=== PATIENT | female | born 1975 | race Two or more races ===

== ENCOUNTER 2020-05-17 08:29 | Outpatient (REF) | payer OTHER, SELFPAY ==
--- NOTE | 2020-05-17 | MM_ITS ---
EXAMINATION: MM SCREENING DIGITAL BREAST TOMOSYNTHESIS, BILATERAL CLINICAL INFORMATION: Screening. Asymptomatic. The lifetime risk of breast cancer based on the Tyrer-Cuzick Model is 16%. COMPARISON: Mammography: September 30, 2018 and studies dating back to February 23, 2014 TECHNIQUE: Digital breast tomosynthesis is performed in both the craniocaudal and mediolateral oblique views along with computer-aided detection (CAD). Synthesized 2D images are generated from the tomosynthesis. FINDINGS: The breasts are extremely dense, which lowers the sensitivity of mammography (ACR BI-RADS breast composition Category d). There are no significant masses, abnormal calcifications, or other abnormalities. MM/MM tomosynthesis screening BI IMPRESSION: There are no significant changes from prior study. ASSESSMENT: BI-RADS 1: Negative RECOMMENDATION: Routine annual mammography screening. This patient's information was entered into a reminder system with a target due date for their next mammogram.
== END 2020-05-17 08:30 | disposition home or self-care (01) ==
LOC: HO.MAMMO 08:29
PROVIDERS: PCP Internal Medicine; Visit Provider Internal Medicine
DX: Z12.31 Encounter for screening mammogram for malignant neoplasm of breast (principal)
CPT/HCPCS: 77063; 77067

== ENCOUNTER 2021-05-27 11:25 | Outpatient (REF) | payer OTHER, SELFPAY ==
--- NOTE | ~2021-05-27 | MM_ITS ---
EXAMINATION: MM SCREENING DIGITAL BREAST TOMOSYNTHESIS, BILATERAL CLINICAL INFORMATION: Screening. Asymptomatic. The lifetime risk of breast cancer based on the Tyrer-Cuzick Model is 17%. COMPARISON: Mammography: 05/17/2020, 09/20/2018, 09/04/2017 TECHNIQUE: Digital breast tomosynthesis is performed in both the craniocaudal and mediolateral oblique views along with computer-aided detection (CAD). Synthesized 2D images are generated from the tomosynthesis. FINDINGS: The breasts are heterogeneously dense, which may obscure small masses (ACR BI-RADS breast composition Category c). There are no significant masses, abnormal calcifications, or other abnormalities. Parenchymal pattern is similar to prior study. No developing density. The axilla and skin contours are unremarkable. MM/MM tomosynthesis screening BI IMPRESSION: No mammographic evidence of malignancy. ASSESSMENT: BI-RADS 1: Negative RECOMMENDATION: Routine annual mammography screening. This patient's information was entered into a reminder system with a target due date for their next mammogram.
== END 2021-05-27 11:26 | disposition home or self-care (01) ==
LOC: HO.MAMMO 11:25
PROVIDERS: Visit Provider Internal Medicine
DX: Z12.31 Encounter for screening mammogram for malignant neoplasm of breast (principal)
CPT/HCPCS: 77063; 77067

== ENCOUNTER 2022-05-30 08:00 | Outpatient (REF) | payer OTHER, SELFPAY ==
--- NOTE | ~2022-05-30 | MM_ITS ---
EXAMINATION: MM SCREENING DIGITAL BREAST TOMOSYNTHESIS, BILATERAL CLINICAL INFORMATION: Screening. Asymptomatic. The lifetime risk of breast cancer based on the Tyrer-Cuzick Model is 16%. COMPARISON: Mammography: 05/27/2021, 05/17/2020, 09/20/2018 TECHNIQUE: Digital breast tomosynthesis is performed in both the craniocaudal and mediolateral oblique views along with computer-aided detection (CAD). Synthesized 2D images are generated from the tomosynthesis. FINDINGS: The breasts are heterogeneously dense, which may obscure small masses (ACR BI-RADS breast composition Category c). There are no significant masses, abnormal calcifications, or other abnormalities. Parenchymal pattern is similar to prior studies. There is no developing density or architectural abnormality. The axilla and skin contours are unremarkable. No significant changes. MM/MM tomosynthesis screening BI IMPRESSION: No mammographic evidence of malignancy. ASSESSMENT: BI-RADS 1: Negative RECOMMENDATION: Routine annual mammography screening. This patient's information was entered into a reminder system with a target due date for their next mammogram.
== END 2022-05-30 08:01 | disposition home or self-care (01) ==
LOC: HO.MAMMO 08:00
PROVIDERS: PCP Internal Medicine; Visit Provider Internal Medicine
DX: Z12.31 Encounter for screening mammogram for malignant neoplasm of breast (principal)
CPT/HCPCS: 77063; 77067

== ENCOUNTER 2022-11-24 14:59 | Emergency (ER) | payer OTHER, SELFPAY ==
--- NOTE | ~2022-11-24 | CT_ITS ---
EXAMINATION: CT HEAD WITHOUT CONTRAST CT CERVICAL SPINE WITHOUT CONTRAST CLINICAL INFORMATION: Fall. COMPARISON: MRI of the brain 02/24/2019 TECHNIQUE: Imaging was performed from the skull base to vertex without intravenous administration of contrast. In addition, helical noncontrast CT imaging was acquired through the cervical spine and source images were reviewed along with axial reconstructions and sagittal and coronal MPRs. [This CT examination was performed using dose optimization techniques as appropriate, variously including the following: *Automated exposure control *Adjustment of mA and/or kV according to patient size (this includes techniques or standardized protocols for targeted exams where dose is matched to indication/reason for exam; i.e. extremities or head) *Use of iterative reconstruction technique] DLP: 857 mGy-cm FINDINGS: HEAD: No intracranial mass, hemorrhage, or midline shift is visualized. The ventricles and sulci are proportional. No extra-axial collections are identified. The paranasal sinuses and mastoid air cells are well aerated. CERVICAL SPINE: There is no evidence of acute cervical spine fracture. Vertebral bodies remain normal in height. Cervical vertebrae have normal alignment. There is multilevel degenerative spondylosis of the cervical spine with disc height narrowing and endplate spurs and facet joint arthrosis No pre- or paravertebral soft tissue abnormality is identified. Limited assessment of the lung apices is unremarkable. CT/CT cervical spine wo IV con IMPRESSION: 1. No acute intracranial pathology. 2. No CT evidence of acute cervical spine fracture or traumatic subluxation
--- NOTE | ~2022-11-24 | XR_ITS ---
EXAMINATION: XR CHEST CLINICAL INFORMATION: Trauma COMPARISON: None available. TECHNIQUE: Frontal view of the chest was obtained. FINDINGS: No significant abnormality is noted involving the heart, lungs, mediastinum, bony thorax or soft tissues. Degenerative changes of the spine. XR/XR chest 1V IMPRESSION: Unremarkable examination.
--- NOTE | ~2022-11-24 | CT_ITS ---
EXAMINATION: CT HEAD WITHOUT CONTRAST CT CERVICAL SPINE WITHOUT CONTRAST CLINICAL INFORMATION: Fall. COMPARISON: MRI of the brain 02/24/2019 TECHNIQUE: Imaging was performed from the skull base to vertex without intravenous administration of contrast. In addition, helical noncontrast CT imaging was acquired through the cervical spine and source images were reviewed along with axial reconstructions and sagittal and coronal MPRs. [This CT examination was performed using dose optimization techniques as appropriate, variously including the following: *Automated exposure control *Adjustment of mA and/or kV according to patient size (this includes techniques or standardized protocols for targeted exams where dose is matched to indication/reason for exam; i.e. extremities or head) *Use of iterative reconstruction technique] DLP: 857 mGy-cm FINDINGS: HEAD: No intracranial mass, hemorrhage, or midline shift is visualized. The ventricles and sulci are proportional. No extra-axial collections are identified. The paranasal sinuses and mastoid air cells are well aerated. CERVICAL SPINE: There is no evidence of acute cervical spine fracture. Vertebral bodies remain normal in height. Cervical vertebrae have normal alignment. There is multilevel degenerative spondylosis of the cervical spine with disc height narrowing and endplate spurs and facet joint arthrosis No pre- or paravertebral soft tissue abnormality is identified. Limited assessment of the lung apices is unremarkable. CT/CT head/brain wo IV con IMPRESSION: 1. No acute intracranial pathology. 2. No CT evidence of acute cervical spine fracture or traumatic subluxation
[2022-11-24 15:07] VITALS: BP 128/84; PULSE 113; O2SAT 100
[2022-11-24 15:08] VITALS: BP 132/90; PULSE 111; RESP 18; TEMP 36.6; O2SAT 99; BMI 22.0
--- NOTE | 2022-11-24 15:31 | ED.GENADULT ---
HPI - General Adult General Chief complaint: Fall Stated complaint: fall with head strike Time Seen by Provider: 11/24/22 15:17 Source: patient Mode of arrival: ambulatory Limitations: no limitations History of Present Illness HPI narrative: 47-year-old female presenting from adult day facility for reports of fall out of wheelchair, patient was trying to do a wheely on her wheelchair, fell, hit her head and reports she thinks she lost consciousness, patient is not on blood thinners, she is not sure how long she was on the ground for. Patient tells me she has to come in here per policy of the adult day program. Patient endoreses diffuse headache w/o vision changes or dizziness. She denies vision changes, nausea, vomiting, abdominal pain, chest pain, shortness of breath, preceding symptoms to fall, dizziness. GCS 15 Related Data Previous Rx's Medication Instructions Recorded oxybutynin chloride 5 mg 5 mg PO DAILY #30 tabs 04/23/22 tablet,extended release 24 hr Allergies Allergy/AdvReac Type Severity Reaction Status Date / Time No Known Allergies Allergy Verified 02/10/22 07:47 Review of Systems Review of Systems: Constitutional : No Weight loss, No Fever, No Chills, No Fatigue, No Malaise ENT/Mouth : No sore throat, No Rhinorrhea Eyes: No Eye Pain, No Swelling, No Redness Cardiovascular : No Chest Pain, No SOB, No Dyspnea on Exertion, No Orthopnea, No Edema, No Palpitations Respiratory : No Cough, No Sputum, No Wheezing Gastrointestinal : No Nausea, No Vomiting, No Diarrhea, No Constipation, No abdominal Pain, No Hematochezia, No Melena Genitourinary : No Dysuria, No Urinary Frequency, No Hematuria, Musculoskeletal : No joint pain, No Myalgias, No Joint Swelling Skin : No Skin Lesions, No rash Neuro : No Weakness, No Numbness, No Dizziness, + Headache Psych : No Anxiety/Panic, No Depression All other systems reviewed and are negative Yes all other systems are reviewed and are negative FORMERLY [facility], [facility] Past Medical History Attestation statement: The following information was validated with the patient. Source: old records reviewed and nursing notes reviewed Medical History Cerebral palsy Family history of diabetes mellitus Underweight Urge urinary incontinence Surgical History Deficient knowledge of leg surgery Fibroadenoma Family History Family History Mother Diabetes mellitus Father Diabetes mellitus Social History Social History Housing: House Alcohol intake: never Patient Tobacco Use Status: Never used Tobacco Tobacco use type: Cigarette e-Cigarette/Vaping Use: Never Used Second Hand Smoke Exposure: No Advance Directives: No Advance Directives Information Provided: No service: No Current occupational status: disabled Cognitive needs: Yes Hearing needs: No Vision needs: No Physical Exam ED Vital Signs: Vital Signs - 24 hr 11/24/22 15:08 Temperature 98 F Pulse Rate 111 H Respiratory Rate 18 Blood Pressure 132/90 H Pulse Oximetry 99 Oxygen Delivery Method Room Air BMI result Body Mass Index 22.0 VSS Appearance: Alert.? Oriented X3.? No acute distress.? Head: Normocephalic, atraumatic, no step-offs or deformities Eyes: Pupils equal, round and reactive to light.?EOMI Neck: Normal inspection.? Neck supple.? CVS: Normal heart rate and rhythm.? Pulses normal.? Respiratory: No respiratory distress.? Breath sounds normal.? Abdomen: Soft and nontender.? Skin: Skin warm and dry.? Normal skin color.? Normal skin turgor.? Extremities: No lower extremity edema.? No calf ttp. 5/5 strength to bilateral upper and lower extremities Back: No midline tenderness, no C-spine tenderness, full range of motion, no CVA tenderness bilaterally Neuro: Oriented X 3.? No motor deficit.? No sensory deficit. CN 2-12 intact . Normal [id number], negative Romberg and pronator drift. Normal hand certified alcohol drug counselor bilaterally. Course Reevaluation(s) Reevaluation #1: CBC with slight leukocytosis likely reactive from fall, chemistry no acute electrolyte abnormalities requiring intervention.Chest xray unremarkable. CT head/cervical spine no acute findings. Likely concussion. Educated on post concussive syndrome. Educated patient on diagnosis and treatment plan, answered all question, patient verbalizes understanding. At this time patient will be discharged home, advised to return with new or worsening symptoms. Educated on worrisome signs and symptoms and when to return. At this time I feel comfortable discharge home. Time: 16:58 Medications Administered Discontinued Medications Generic Name Dose Route Start Last Admin Trade Name Andrez PRN Reason Stop Dose Admin Acetaminophen 650 mg 11/24/22 16:12 11/24/22 16:34 Acetaminophen 325 Mg Tablet PO 11/24/22 16:13 650 mg ONCE ONE Administration Medical Decision Making Medical Decision Making [facility] Narrative: 47-year-old female presents with you fall with loss of consciousness at an adult health facility. Not on blood thinners. no medical complaints. Had to come in for evaluation per protocol of [facility] physical examination benign. Likely concussion with loss of consciousness. Unlikely intracranial hemorrhage, stroke, posterior stroke, skull fracture dislocation. No signs of cervical spine fracture dislocation unlikely facial fractures. No preceding symptoms to fall I do not suspect ACS, PE , dissection. will rule out rhabdo Plan labs, imaging Differential Diagnosis Differential Diagnoses: The differential diagnosis associated with the presentation includes Likely concussion with loss of consciousness. Unlikely intracranial hemorrhage, stroke, posterior stroke, skull fracture dislocation. No signs of cervical spine fracture dislocation unlikely facial fractures. No preceding symptoms to fall I do not suspect ACS, PE , dissection. will rule out rhabdo Admission/Observation Consideration of admission/observation: Escalation of care including admission/observation considered Lab Data [facility] Lab Attestation statement: I reviewed the patient's lab results. 11/24/22 16:13 11/24/22 16:13 Labs: Lab Results 11/24/22 11/24/22 Range/Units 16:13 16:13 WBC 13.3 H (4.8-10.8) X10*3/uL RBC 4.84 (4.20-5.50) X10*6/uL Hgb 11.0 L (12.0-16.0) g/dl Hct 36.5 L (37.0-47.0) % MCV 75.4 L (80.0-98.0) fL MCH 22.7 L (27.0-33.0) pg MCHC 30.1 L (31.0-35.0) g/dl RDW 15.1 (11.0-16.0) % Plt Count 381 (160-400) X10*3/uL MPV 9.5 (9.4-12.3) fL Immature Gran % (Auto) 0.3 (0.0-0.4) % Neut % (Auto) 80.2 H (45-73) % Lymph % (Auto) 12.2 L (20-40) % Osborne % (Auto) 6.4 (2-11) % Eos % (Auto) 0.2 (0-4) % Baso % (Auto) 0.7 (0-2) % Lymph # (Auto) 1.6 (1.2-4.9) X10*3/uL Osborne # (Auto) 0.9 (0.1-1.2) X10*3/uL Eos # (Auto) 0.0 (0.0-0.4) X10*3/uL Baso # (Auto) 0.1 (0.0-0.2) X10*3/uL Abs Immat Gran (auto) 0.04 H (0.00-0.03) X10*3/uL Absolute Neuts (auto) 10.7 H (2.0-8.3) x10*3/uL Absolute Nucleated RBC 0.000 (0.0-0.012) X10*3/uL Nucleated RBC % (auto) 0.0 (0.0-0.2) /100WBC Sodium 137 (135-145) mmol/L Potassium 3.9 (3.3-5.1) mmol/L Chloride 104 (96-108) mmol/L Carbon Dioxide 25 (22-29) mmol/L Anion Gap 12 (12-20) BUN 7 L (9-16) mg/dL Creatinine 0.66 (0.5-1.4) mg/dL Estim Creat Clear Calc 85.1 Estimated GFR > 60 Random Glucose 110 (60-115) mg/dL Calcium 9.2 (8.4-10.2) mg/dL Total Bilirubin 0.4 (0.0-1.0) mg/dL AST 17 (5-31) U/L ALT 10 (0-31) U/L Alkaline Phosphatase 78 (39-117) U/L Total Creatine Kinase 54 (26-140) U/L Total Protein 7.0 (6.5-8.0) g/dL Albumin 4.1 (3.5-5.0) g/dL Independent Interpretation I performed an independent interpretation of an: Plain X-Ray and CT Scan Radiology Impression Discussion of test interpretation with radiology: I have reviewed the radiologist's reading. Core Measures AMI core measures followed: Yes Measure exclusions: not indicated Critical Care Time Critical Care Time Critical Care Time: No Discharge Plan Discharge Clinical Impression: Concussion, Fall Patient Disposition: Home, Self-Care Instructions: Concussion (ED), Post Concussion Syndrome (ED) Additional Instructions: Take your medications as prescribed. If you were prescribed antibiotics today, it is important that you take your medication to their entirety, do not skip any doses, do not finish them early. Follow-up with your primary care provider this week. Return to the emergency department with new or worsening symptoms. Such as fevers, chills, chest pain, shortness of breath, nausea, vomiting, dizziness, headache, vision changes, lethargy In case of emergency call 911 Patient can take ibuprofen every 6 hours, Tylenol every 4 as needed for pain or discomfort. CT/CT cervical spine wo IV con IMPRESSION: 1. No acute intracranial pathology. 2. No CT evidence of acute cervical spine fracture or traumatic subluxation ?CT/CT head/brain wo IV con IMPRESSION: 1. No acute intracranial pathology. 2. No CT evidence of acute cervical spine fracture or traumatic subluxation ? ?XR/XR chest 1V IMPRESSION: Unremarkable examination. Prescriptions: No Action oxybutynin chloride 5 mg tablet extended release 24hr 5 mg PO DAILY Qty: 30 5RF Referrals: Sonia Barraza MD [Primary Care Provider] - 2 days Stand Alone Forms: Work/School Release
[2022-11-24 16:18] LABS: MANUAL DIFF FLAG NO
[2022-11-24 16:22] LABS: Basophils Absolute Auto 0.1 X10*3/uL (0.0-0.2); Basophils Percent Auto 0.7 % (0-2); Eosinophils Percent Auto 0.2 % (0-4); Hematocrit 36.5 % (37.0-47.0); Imm Gran Abs Auto 0.04 X10*3/uL (0.00-0.03); Imm Gran Pct Auto 0.3 % (0.0-0.4); Lymphocytes Absolute Auto 1.6 X10*3/uL (1.2-4.9); Lymphocytes Percent Auto 12.2 % (20-40); Mean Corpuscular HGB Conc 30.1 g/dl (31.0-35.0); Mean Corpuscular Hemoglobin 22.7 pg (27.0-33.0); Mean Corpuscular Volume 75.4 fL (80.0-98.0); Mean Platelet Volume 9.5 fL (9.4-12.3); Monocytes Absolute Auto 0.9 X10*3/uL (0.1-1.2); Monocytes Percent Auto 6.4 % (2-11); Neutrophils Absolute Auto 10.7 x10*3/uL (2.0-8.3); Neutrophils Percent Auto 80.2 % (45-73); Platelet Count 381 X10*3/uL (160-400); Red Blood Count 4.84 X10*6/uL (4.20-5.50); Red Cell Distribution Width 15.1 % (11.0-16.0); White Blood Count 13.3 X10*3/uL (4.8-10.8)
[2022-11-24 16:34] LABS: Alanine Aminotransferase 10 U/L (0-31); Albumin Level 4.1 g/dL (3.5-5.0); Alkaline Phosphatase 78 U/L (39-117); Anion Gap 12 (12-20); Aspartate Amino Transferase 17 U/L (5-31); Bilirubin Total 0.4 mg/dL (0.0-1.0); Blood Urea Nitrogen 7 mg/dL (9-16); Calcium 9.2 mg/dL (8.4-10.2); Carbon Dioxide 25 mmol/L (22-29); Chloride 104 mmol/L (96-108); Creatinine Clr Calc Pharmacy 85.1; Estimated Glomerular Filt Rate > 60; Glucose Random 110 mg/dL (60-115); Potassium 3.9 mmol/L (3.3-5.1); Sodium 137 mmol/L (135-145)
[2022-11-24] MEDS: Acetaminophen 325 MG TABLET 650 MG PO (16:34)
== END 2022-11-24 17:17 | disposition home or self-care (01) ==
PROVIDERS: Physician Assistant; Emergency Provider Emergency Medicine; PCP Internal Medicine
DX: S06.0XAA Concussion with loss of consciousness status unknown, initial encounter (principal); W05.0XXA Fall from non-moving wheelchair, initial encounter; Y93.89 Activity, other specified; Y92.89 Other specified places as the place of occurrence of the external cause; G80.9 Cerebral palsy, unspecified; N39.41 Urge incontinence; R63.6 Underweight
CPT/HCPCS: 36415; 70450; 71045; 72125; 80053; 82550; 85025; 99284

== ENCOUNTER 2023-02-11 07:52 | Outpatient (AMB) | payer OTHER, SELFPAY ==
--- NOTE | 2023-02-11 07:54 | MHC.PC.OV ---
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 Required: No Accompanied by: Mother Allergies No Known Allergies Allergy (Verified 02/11/23 08:02) Medication List - Last Reconciled 02/11/23 by Sonia London MD oxybutynin chloride ER 5 mg PO DAILY Tobacco use date assessed: 02/11/23 Dental Screening Dental Screen Date: 02/11/23 Did you have a dental visit in the last 12 months?: No Did you have a dental problem in the last 6 months where you did not have access to dental care?: No Was dental information given to patient?: Patient has dentist HPI HPI Comments History of Present Illness Details This is a 47-year-old female that comes for her physical exam. Last mammogram was May 2022 and was normal. Has no family history of colon cancer and will have Cologuard. Has cerebral palsy since and use a walker to walk due to no strength in lower limbs. Denies any chest pain or shortness of breath. No fever or cough. No night sweats. [facility] Medical History Cerebral palsy Family history of diabetes mellitus Underweight Urge urinary incontinence Surgical History Deficient knowledge of leg surgery Fibroadenoma Family History Mother Diabetes mellitus Father Diabetes mellitus Social History Housing: House Alcohol intake: never Patient Tobacco Use Status: Never used Tobacco e-Cigarette/Vaping Use: Never Used Second Hand Smoke Exposure: No service: No Current occupational status: disabled Cognitive needs: Yes Hearing needs: No Vision needs: No Questionnaire PHQ-9 Over the last 2 weeks, how often have you been bothered by any of the following problems? 1. Little interest or pleasure in doing things: not at all 2. Feeling down, depressed, or hopeless: not at all 3. Trouble falling or staying asleep, or sleeping too much: not at all 4. Feeling tired or having little energy: not at all 5. Poor appetite or overeating: not at all 6. Feeling bad about yourself - or that you are a failure or have let yourself or your family down: not at all 7. Trouble concentrating on things, such as reading the newspaper or watching television: not at all 8. Moving or speaking so slowly that other people could have noticed. Or the opposite - being so fidgety or restless that you have been moving around a lot more than usual: not at all 9. Thoughts that you would be better off or of hurting yourself in some way: not at all Total score: 0 Depression Screening Interpretation: Negative 77645 - PHQ-9 Billing: Yes Source: Developed by Drs. Darwin Bergman, Mariella Leiva, Evangelist Hernandez and colleagues, with an educational brenda from [employer]. Thrive Questionnaire Date Thrive assessed: 02/11/23 I am a: Patient What is your living situation today?: I have a steady place to live Within the past 12 months, did the food you bought not last and you didn't have the money to get more?: Never true Within the past 12 months, did you worry whether your food would run out before you got money to buy more?: Never true Do you have trouble paying for medicines?: No Do you have trouble getting transportation to medical appointments?: No Do you have trouble paying your heating and electricity bill?: No Do you have trouble taking care of your child, family member or friend?: No Do you have trouble with day-to-day activities such as bathing, preparing meals, shopping, managing finances, etc.?: No Are you currently unemployed and looking for a job?: No Are you interested in more education?: No Please select the resources that you would like help with: None Currently or been in a relationship where the following occur: no concerns reported AUDIT C Alcohol Use Questionnaire (AUDIT-C) 1. How often do you have a drink containing alcohol?: Never Total Score: 0 Score Reviewed/Action Taken: No LÁZARO-7 AMB Questionnaire LÁZARO-7 Date LÁZARO - 7 assessed: 02/11/23 Feeling nervous, anxious, or on edge: 0 = Not at all Not being able to stop or control worryin = Not at all Worrying too much about different things: 0 = Not at all Trouble relaxin = Not at all Being so restless that it is hard to sit still: 0 = Not at all Becoming easily annoyed or irritable: 0 = Not at all Feeling afraid as if something awful might happen: 0 = Not at all Total LÁZARO-7 score (0-4 normal; 5-9 mild; 10-14 moderate; 15-21 severe): 0 Source: Developed by Drs. Darwin Bergman, Mariella Leiva, Evangelist Hernandez and colleagues, with an educational brenda from [employer]. LÁZARO-7 Assessment Billing LÁZARO-7 Assessment Tool: LÁZARO-7 Assessment 44415 Review of Systems Const All systems reviewed & are unremarkable except as noted in HPI and below Eyes Reports no additional complaints, Denies change in vision and Denies other visual disturbances Card Denies chest pain at rest, Denies chest pain with activity, Denies edema, Denies irregular heart rhythm, Denies claudication, Denies dyspnea, Denies dyspnea on exertion, Denies orthopnea, Denies paroxysmal nocturnal dyspnea and Denies slow heart rate Resp Denies cough, Denies dyspnea and Denies dyspnea on exertion GI Denies abdominal pain, Denies change in bowel habits, Denies excessive flatus, Denies nausea and Denies vomiting Denies urinary incontinence, Denies urinary hesitancy and Denies urinary urgency Musc Reports abnormal gait, Reports atrophy and Reports deformity Skin/Breast Denies bleeding lesions, Denies changing lesions and Denies rash Neuro Reports abnormal gait, Denies confusion and Denies lack of coordination Psych Denies confusion Physical exam (Primary Care) Vital Signs: Last Vital Signs BP 130/82 02/11/23 07:58 BMI result Body Mass Index 15.2 Tobacco/Smoking Status: Tobacco use Status Tobacco use date assessed 02/11/23 02/11/23 08:00 Patient Tobacco Use Status Never used Tobacco 02/11/23 07:56 Tobacco use type 02/11/23 08:00 e-Cigarette/Vaping Use Never Used 02/11/23 07:56 PHQ-9: PHQ-9 Score PHQ-9: Total score 0 02/11/23 08:05 Depression Screening Interpretation: Negative Thrive Assessment: Date of Thrive Assessment Date Thrive assessed 02/11/23 02/11/23 08:00 Currently or been in a relationship where the following occur: no concerns reported Const General: No confusion Orientation/consciousness: patient oriented x3 and No confusion Limitations: ambulation with walker HENMT Head: Yes normal to inspection, Yes normocephalic and Yes atraumatic Ears: external ears normal Eyes General: appearance normal, both eyes and all related structures Eyelids: Yes eyelids normal Conjunctivae: conjunctivae normal Neck Neck: Yes normal visual inspection and Yes supple Resp Effort & Inspection: normal respiratory effort Auscultation: clear to auscultation bilaterally Cardio Jugular venous distension: no JVD Rate: regular rate Rhythm: regular rhythm Heart sounds: S1 normal heart sound present and S2 normal heart sound present GI Inspection: Yes normal to inspection Palpation (GI): Soft to palpation and nontender Auscultation: normal bowel sounds Skin General skin exam: no rashes or lesions noted Neuro Other: 0/5 strength in lower limbs General: patient oriented x3 and No confusion Extrem Other: Flaccid lower limbs, feet inwardly deviated Psych Appearance: grossly normal Immunizations Boostrix Tdap Performing Provider: Sonia London MD Administered by: KRISTA Lucio on 02/11/23 08:16 Dose Route Admin Location Lot Number Expiration Date NDC Spud Sorter 0.5 mL IM Right Deltoid [id number] 05/20/25 [id number] [employer] VIS Given Date VIS Provided VIS Publication Date 02/11/23 Single Vaccine 21 Eligibility Eligibility Date Funding Source Not [facility] Eligible 02/11/23 Private Assessment and Plan Assessment & Plan (1) Encounter for physical examination: Code(s): Z00.00 - Encounter for general adult medical examination without abnormal findings Plan: Repeat in a year. (2) Cerebral palsy: Code(s): G80.9 - Cerebral palsy, unspecified Qualifiers: Cerebral palsy type: spastic diplegic Qualified Code(s): G80.1 - Spastic diplegic cerebral palsy Plan: Use walker prn. Continue family support. Orders: Orders IRON PROFILE Today D64.9 - Anemia, unspecified Lipid Panel Today Z00.00 - Encounter for general adult medical examination without abnormal findings Complete Blood Count Auto Diff Today D64.9 - Anemia, unspecified T Spot TB Today Z11.1 - Encounter for screening for respiratory tuberculosis TDaP Immunization Today Z23 - Encounter for immunization Referrals Cologuard Test Z12.11 - Encounter for screening for malignant neoplasm of colon, Z12.12 - Encounter for screening for malignant neoplasm of rectum Coding Level of Care Code Est Pt Prev Care 40-64y(52580) Diagnoses Encounter for physical examination Z00.00 Cerebral palsy G80.1 Cerebral palsy type: spastic diplegic Additional Codes LÁZARO-7 Assessment Billing - LÁZARO-7 Assessment Tool: LÁZARO-7 Assessment 39716 ([id number]) Time Spent (min) 32
[2023-02-11 07:58] VITALS: BP 130/82; BMI 15.2
== END 2023-02-11 08:17 | disposition home or self-care (01) ==
PROVIDERS: Visit Provider Internal Medicine
DX: Z00.00 Encounter for general adult medical examination without abnormal findings (principal); G80.1 Spastic diplegic cerebral palsy; Z23 Encounter for immunization
CPT/HCPCS: 90471; 90715; 99396

== ENCOUNTER 2023-06-05 08:17 | Outpatient (REF) | payer OTHER, SELFPAY | END 2023-06-05 08:18 | disposition home or self-care (01) | LOC: HO.MAMMO 08:17 | PROVIDERS: PCP Internal Medicine; Visit Provider Internal Medicine | DX: Z12.31 Encounter for screening mammogram for malignant neoplasm of breast (principal) | CPT/HCPCS: 77063; 77067 ==

== ENCOUNTER → 2023-06-05 08:30 | Outpatient (BNV) | payer OTHER, SELFPAY | PROVIDERS: PCP Internal Medicine; Visit Provider Radiology Diagnostic Radiology | DX: Z12.31 Encounter for screening mammogram for malignant neoplasm of breast (principal) | CPT/HCPCS: 77063; 77067 ==

== ENCOUNTER 2023-12-28 12:30 | Outpatient (AMB) | payer OTHER, SELFPAY ==
[2023-12-28 12:34] VITALS: BP 116/76; PULSE 86; O2SAT 100; BMI 15.0
--- NOTE | 2023-12-28 12:34 | MHC.PC.OV ---
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: No Accompanied by: Sister Allergies No Known Allergies Allergy (Verified 12/28/23 12:49) Medication List - Last Reconciled 12/28/23 by Sonia London MD oxybutynin chloride ER 5 mg PO DAILY Tobacco use date assessed: 12/28/23 Dental Screening Dental Screen Date: 12/28/23 Did you have a dental visit in the last 12 months?: Yes Did you have a dental problem in the last 6 months where you did not have access to dental care?: No Was dental information given to patient?: Patient has dentist HPI HPI Comments History of Present Illness Details this is a 48-year-old female with cerebral palsy and urge urinary incontinence that comes accompanied by cousin Sera complaining of abdominal pain that has been happening on and off aggravated by foods in periumbilical area. Recently had an episode of diarrhea that lasted for a week and resolve on its own. No fever. No nausea or vomiting. Needs walker due to cerebral palsy having no range of motion in lower limbs. Urinary incontinence well controlled with oxybutynin. [facility] Medical History Cerebral palsy Family history of diabetes mellitus Underweight Urge urinary incontinence Surgical History Fibroadenoma Deficient knowledge of leg surgery Family History Mother Diabetes mellitus Father Diabetes mellitus Social History Housing: House Alcohol intake: never Patient Tobacco Use Status: Never used Tobacco e-Cigarette/Vaping Use: Never Used Second Hand Smoke Exposure: No service: No Current occupational status: disabled Cognitive needs: Yes Hearing needs: No Vision needs: No Questionnaire PHQ-9 Over the last 2 weeks, how often have you been bothered by any of the following problems? 1. Little interest or pleasure in doing things: not at all 2. Feeling down, depressed, or hopeless: not at all 3. Trouble falling or staying asleep, or sleeping too much: not at all 4. Feeling tired or having little energy: not at all 5. Poor appetite or overeating: not at all 6. Feeling bad about yourself - or that you are a failure or have let yourself or your family down: not at all 7. Trouble concentrating on things, such as reading the newspaper or watching television: not at all 8. Moving or speaking so slowly that other people could have noticed. Or the opposite - being so fidgety or restless that you have been moving around a lot more than usual: not at all 9. Thoughts that you would be better off or of hurting yourself in some way: not at all Total score: 0 Depression Screening Interpretation: Negative Depression Screening Done: Yes 63208 - PHQ-9 Billing: Yes Source: Developed by Drs. Darwin Bergman, Mariella Leiva, Evangelist Hernandez and colleagues, with an educational brenda from [employer]. Thrive Questionnaire Date Thrive assessed: 12/28/23 I am a: Patient What is your living situation today?: I have a steady place to live Within the past 12 months, did the food you bought not last and you didn't have the money to get more?: Never true Within the past 12 months, did you worry whether your food would run out before you got money to buy more?: Never true Do you have trouble paying for medicines?: No Do you have trouble getting transportation to medical appointments?: No Do you have trouble paying your heating and electricity bill?: No Do you have trouble taking care of your child, family member or friend?: No Are you currently unemployed and looking for a job?: No Are you interested in more education?: No Please select the resources that you would like help with: None Currently or been in a relationship where the following occur: No concerns reported THRIVE Score: 0 AUDIT C Alcohol Use Questionnaire (AUDIT-C) 1. How often do you have a drink containing alcohol?: Never Total Score: 0 Score Reviewed/Action Taken: No LÁZARO-7 AMB Questionnaire LÁZARO-7 Date LÁZARO - 7 assessed: 12/28/23 Feeling nervous, anxious, or on edge: 0 = Not at all Not being able to stop or control worryin = Not at all Worrying too much about different things: 0 = Not at all Trouble relaxin = Not at all Being so restless that it is hard to sit still: 0 = Not at all Becoming easily annoyed or irritable: 0 = Not at all Feeling afraid as if something awful might happen: 0 = Not at all Total LÁZARO-7 score (0-4 normal; 5-9 mild; 10-14 moderate; 15-21 severe): 0 Source: Developed by Drs. Darwin Bergman, Mariella Leiva, Evangelist Hernandez and colleagues, with an educational brenda from [employer]. LÁZARO-7 Assessment Billing LÁZARO-7 Assessment Tool: LÁZARO-7 Assessment 40610 Review of Systems Const All systems reviewed & are unremarkable except as noted in HPI and below Card Denies chest pain at rest, Denies chest pain with activity, Denies edema, Denies irregular heart rhythm, Denies claudication, Denies dyspnea, Denies dyspnea on exertion, Denies orthopnea, Denies paroxysmal nocturnal dyspnea and Denies slow heart rate Resp Denies cough, Denies dyspnea and Denies dyspnea on exertion GI Reports abdominal pain, Denies change in bowel habits, Denies excessive flatus, Denies nausea and Denies vomiting Denies urinary incontinence, Denies urinary hesitancy and Denies urinary urgency Physical exam (Primary Care) Vital Signs: Last Vital Signs Pulse 86 12/28/23 12:34 BP 116/76 12/28/23 12:34 Pulse Ox 100 12/28/23 12:34 Oxygen Delivery Method Room Air 12/28/23 12:34 BMI result Body Mass Index 15.0 BMI Assessment/Plan discussion: Low BMI Low, Plan discussed: lifestyle, increase calorie intake and dietary Tobacco/Smoking Status: Tobacco use Status Tobacco use date assessed 12/28/23 12/28/23 12:40 Patient Tobacco Use Status Never used Tobacco 12/28/23 12:40 Tobacco use type 02/11/23 08:18 e-Cigarette/Vaping Use Never Used 12/28/23 12:40 PHQ-9: PHQ-9 Score PHQ-9: Total score 0 12/28/23 13:32 Depression Screening Interpretation: Negative Thrive Assessment: Date of Thrive Assessment Date Thrive assessed 12/28/23 12/28/23 12:40 Currently or been in a relationship where the following occur: No concerns reported Const Limitations: ambulation with walker Neck Neck: Yes normal visual inspection and Yes supple Resp Effort & Inspection: normal respiratory effort Auscultation: clear to auscultation bilaterally Cardio Jugular venous distension: no JVD Rate: regular rate Rhythm: regular rhythm Heart sounds: S1 normal heart sound present and S2 normal heart sound present GI Inspection: Yes normal to inspection Palpation (GI): Soft to palpation and nontender Auscultation: normal bowel sounds Assessment and Plan Assessment & Plan (1) Cerebral palsy: Code(s): G80.9 - Cerebral palsy, unspecified Qualifiers: Cerebral palsy type: spastic diplegic Qualified Code(s): G80.1 - Spastic diplegic cerebral palsy Plan: Continue the use of walker. (2) Urge urinary incontinence: Code(s): N39.41 - Urge incontinence Plan: continue oxybutynin. (3) Abdominal pain: Code(s): R10.9 - Unspecified abdominal pain Qualifiers: Abdominal location: periumbilical Qualified Code(s): R10.33 - Periumbilical pain Plan: Referred to GI. Orders: Orders Comprehensive [place]. Panel Fast Today Z00.00 - Encounter for general adult medical examination without abnormal findings Lipid Panel Today Z00.00 - Encounter for general adult medical examination without abnormal findings Medications: New omeprazole 20 mg PO DAILY 90 caps 0RF 90 days walker As directed 1 ea 0RF G80.1 - Spastic diplegic cerebral palsy Refilled oxybutynin chloride ER 5 mg PO DAILY 30 tabs 1RF Coding Level of Care Code Est Pt Level 3 (23984) Complex EM visit Add On G2211 Diagnoses Spastic diplegic cerebral palsy G80.1 Cerebral palsy type: spastic diplegic Urge urinary incontinence N39.41 Periumbilical abdominal pain R10.33 Abdominal location: periumbilical Additional Codes LÁZARO-7 Assessment Billing - LÁZARO-7 Assessment Tool: LÁZARO-7 Assessment 92590 ([id number]) Time Spent (min) 19
== END 2023-12-28 12:55 | disposition home or self-care (01) ==
PROVIDERS: PCP Internal Medicine; Visit Provider Internal Medicine
DX: G80.1 Spastic diplegic cerebral palsy (principal); N39.41 Urge incontinence; R10.33 Periumbilical pain
CPT/HCPCS: 99213; G2211

== ENCOUNTER 2024-02-17 08:12 | Outpatient (AMB) | payer OTHER, SELFPAY ==
[2024-02-17 08:14] VITALS: BP 116/70; PULSE 115; O2SAT 100; BMI 15.0
--- NOTE | 2024-02-17 08:14 | MHC.PC.OV ---
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 Required: No Accompanied by: Self / Same As Patient Allergies No Known Allergies Allergy (Verified 02/17/24 08:32) Medication List - Last Reconciled 02/17/24 by Sonia London MD omeprazole 20 mg PO DAILY 90 days oxybutynin chloride ER 5 mg PO DAILY walker As directed Tobacco use date assessed: 12/28/23 Dental Screening Dental Screen Date: 12/28/23 Did you have a dental visit in the last 12 months?: Yes Did you have a dental problem in the last 6 months where you did not have access to dental care?: No Was dental information given to patient?: Patient has dentist HPI HPI Comments History of Present Illness Details This is a 48-year-old female with cerebral palsy that comes accompanied by occ ther which is her cousin Sera for her physical exam. She walks with a walker due to cerebral palsy. Mammogram done May 2023. Declines Pap smear. No chest pain or shortness on breath. No acute complaints. Cologuard done 2022 was negative. [facility] Medical History Underweight Family history of diabetes mellitus Cerebral palsy Urge urinary incontinence Surgical History Fibroadenoma Deficient knowledge of leg surgery Family History Mother Diabetes mellitus Father Diabetes mellitus Social History Housing: House Alcohol intake: never Patient Tobacco Use Status: Never used Tobacco e-Cigarette/Vaping Use: Never Used Second Hand Smoke Exposure: No service: No Current occupational status: disabled Cognitive needs: Yes Hearing needs: No Vision needs: No Questionnaire PHQ-9 Over the last 2 weeks, how often have you been bothered by any of the following problems? 1. Little interest or pleasure in doing things: not at all 2. Feeling down, depressed, or hopeless: not at all 3. Trouble falling or staying asleep, or sleeping too much: not at all 4. Feeling tired or having little energy: not at all 5. Poor appetite or overeating: not at all 6. Feeling bad about yourself - or that you are a failure or have let yourself or your family down: not at all 7. Trouble concentrating on things, such as reading the newspaper or watching television: not at all 8. Moving or speaking so slowly that other people could have noticed. Or the opposite - being so fidgety or restless that you have been moving around a lot more than usual: not at all 9. Thoughts that you would be better off or of hurting yourself in some way: not at all Total score: 0 Depression Screening Interpretation: Negative Depression Screening Done: Yes 43760 - PHQ-9 Billing: Yes Source: Developed by Drs. Darwin Bergman, Mariella Leiva, Evangelist Hernandez and colleagues, with an educational brenda from [employer]. Thrive Questionnaire Date Thrive assessed: 02/10/24 I am a: Patient What is your living situation today?: I have a steady place to live Within the past 12 months, did the food you bought not last and you didn't have the money to get more?: I choose not to answer this question Within the past 12 months, did you worry whether your food would run out before you got money to buy more?: I choose not to answer this question Do you have trouble paying for medicines?: I choose not to answer this question Do you have trouble getting transportation to medical appointments?: No Do you have trouble paying your heating and electricity bill?: I choose not to answer this question Do you have trouble taking care of your child, family member or friend?: I choose not to answer this question Do you have trouble with day-to-day activities such as bathing, preparing meals, shopping, managing finances, etc.?: Yes Are you currently unemployed and looking for a job?: I choose not to answer this question Are you interested in more education?: I choose not to answer this question Please select the resources that you would like help with: None Currently or been in a relationship where the following occur: I choose not to answer THRIVE Score: 0 AUDIT C Alcohol Use Questionnaire (AUDIT-C) 1. How often do you have a drink containing alcohol?: Never 3. How often do you have six or more drinks on one occasion?: Never Total Score: 0 Score Reviewed/Action Taken: No LÁZARO-7 AMB Questionnaire LÁZARO-7 Date LÁZARO - 7 assessed: 12/28/23 Feeling nervous, anxious, or on edge: 0 = Not at all Not being able to stop or control worryin = Not at all Worrying too much about different things: 0 = Not at all Trouble relaxin = Not at all Being so restless that it is hard to sit still: 1 = Several days Becoming easily annoyed or irritable: 0 = Not at all Feeling afraid as if something awful might happen: 0 = Not at all Total LÁZARO-7 score (0-4 normal; 5-9 mild; 10-14 moderate; 15-21 severe): 1 Source: Developed by Drs. Darwin Bergman, Mariella Leiva, Evangelist Hernandez and colleagues, with an educational brenda from [employer]. LÁZARO-7 Assessment Billing LÁZARO-7 Assessment Tool: LÁZARO-7 Assessment 99386 Review of Systems Const All systems reviewed & are unremarkable except as noted in HPI and below ENT Denies change in voice, Denies nasal discharge and Denies sinus pain Card Denies chest pain at rest, Denies chest pain with activity, Denies edema, Denies irregular heart rhythm, Denies claudication, Denies dyspnea, Denies dyspnea on exertion, Denies orthopnea, Denies paroxysmal nocturnal dyspnea and Denies slow heart rate Resp Denies cough, Denies dyspnea and Denies dyspnea on exertion GI Denies abdominal pain, Denies change in bowel habits, Denies excessive flatus, Denies nausea and Denies vomiting Denies urinary incontinence, Denies urinary hesitancy and Denies urinary urgency Musc Reports abnormal gait and Reports deformity Skin/Breast Denies bleeding lesions, Denies changing lesions and Denies rash Neuro Reports abnormal gait, Denies behavioral changes and Denies lack of coordination Psych Denies behavioral changes Physical exam (Primary Care) Vital Signs: Last Vital Signs Pulse 115 H 02/17/24 08:14 BP 116/70 02/17/24 08:14 Pulse Ox 100 02/17/24 08:14 Oxygen Delivery Method Room Air 02/17/24 08:14 BMI result Body Mass Index 15.0 BMI Assessment/Plan discussion: Low BMI Low, Plan discussed: lifestyle, increase calorie intake and dietary Tobacco/Smoking Status: Tobacco use Status Tobacco use date assessed 12/28/23 02/17/24 08:22 Patient Tobacco Use Status Never used Tobacco 02/17/24 08:22 Tobacco use type 02/11/23 08:18 e-Cigarette/Vaping Use Never Used 02/17/24 08:22 PHQ-9: PHQ-9 Score PHQ-9: Total score 0 02/17/24 08:22 Depression Screening Interpretation: Negative Thrive Assessment: Date of Thrive Assessment Date Thrive assessed 02/10/24 02/17/24 08:22 Currently or been in a relationship where the following occur: I choose not to answer Const General: cooperative Nutritional Appearance: thin and underweight Limitations: ambulation with walker HENMT Head: Yes normal to inspection, Yes normocephalic and Yes atraumatic Ears: external ears normal Eyes General: appearance normal, both eyes and all related structures Eyelids: Yes eyelids normal Conjunctivae: conjunctivae normal Neck Neck: Yes normal visual inspection and Yes supple Resp Effort & Inspection: normal respiratory effort Auscultation: clear to auscultation bilaterally Cardio Jugular venous distension: no JVD Rate: regular rate Rhythm: regular rhythm Heart sounds: S1 normal heart sound present and S2 normal heart sound present GI Inspection: Yes normal to inspection Palpation (GI): Soft to palpation and nontender Auscultation: normal bowel sounds Skin General skin exam: no rashes or lesions noted Neuro General: no focal motor deficits Motor exam (neuro): Abnormal motor strength present (5/5 upper limbs, 0/5 lower limbs) Extrem Other: atrophic lower limbs Psych Appearance: grossly normal Assessment and Plan Assessment & Plan (1) Encounter for physical examination: Code(s): Z00.00 - Encounter for general adult medical examination without abnormal findings (2) Cerebral palsy: Code(s): G80.9 - Cerebral palsy, unspecified Qualifiers: Cerebral palsy type: spastic diplegic Qualified Code(s): G80.1 - Spastic diplegic cerebral palsy Orders: Orders Complete Blood Count Auto Diff Today D64.9 - Anemia, unspecified IRON PROFILE Today D64.9 - Anemia, unspecified Vitamin D 25-OH Total Today E55.9 - Vitamin D deficiency, unspecified Vitamin B12 and Folate Today E53.8 - Deficiency of other specified B group vitamins Rubeola IgG (Measles) Today Z23 - Encounter for immunization Lipid Panel Today Z00.00 - Encounter for general adult medical examination without abnormal findings Comprehensive [place]. 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
== END 2024-02-17 08:41 | disposition home or self-care (01) ==
PROVIDERS: PCP Internal Medicine; Visit Provider Internal Medicine
DX: Z00.00 Encounter for general adult medical examination without abnormal findings (principal); G80.1 Spastic diplegic cerebral palsy
CPT/HCPCS: 99396

== ENCOUNTER 2024-04-11 07:23 | Outpatient (REF) | payer OTHER, SELFPAY ==
[2024-04-11 07:41] LABS: MANUAL DIFF FLAG NO
[2024-04-11 08:41] LABS: Alanine Aminotransferase 12 U/L (0-31); Albumin Level 4.3 g/dL (3.5-5.0); Alkaline Phosphatase 76 U/L (39-117); Anion Gap 13 (12-20); Aspartate Amino Transferase 22 U/L (5-31); Bilirubin Total 0.4 mg/dL (0.0-1.0); Blood Urea Nitrogen 14 mg/dL (9-16); Calcium 9.2 mg/dL (8.4-10.2); Carbon Dioxide 25 mmol/L (22-29); Chloride 105 mmol/L (96-108); Cholesterol 189 mg/dL (<200); Estimated Glomerular Filt Rate > 60; Glucose Fasting 97 mg/dL (60-99); HDL Cholesterol 56 mg/dL (>40); Iron 16 mcg/dL (30-160); LDL Cholesterol Calculated 120 mg/dL (<100); Percent Iron Saturation 5 % (15-50); Potassium 3.8 mmol/L (3.3-5.1); Sodium 139 mmol/L (135-145); Total Iron Binding Capacity 352 mcg/dL (228-428); Total Protein 7.3 g/dL (6.5-8.0); Triglycerides 66 mg/dL (<150); Unsaturated Iron Binding 336 ug/dL
[2024-04-11 08:42] LABS: Basophils Absolute Auto 0.1 X10*3/uL (0.0-0.2); Basophils Percent Auto 1.1 % (0-2); Eosinophils Percent Auto 0.2 % (0-4); Hemoglobin 10.5 g/dl (12.0-16.0); Imm Gran Abs Auto 0.01 X10*3/uL (0.00-0.03); Imm Gran Pct Auto 0.2 % (0.0-0.4); Lymphocytes Absolute Auto 1.5 X10*3/uL (1.2-4.9); Lymphocytes Percent Auto 26.8 % (20-40); Mean Corpuscular HGB Conc 29.2 g/dl (31.0-35.0); Mean Corpuscular Volume 75.5 fL (80.0-98.0); Mean Platelet Volume 9.8 fL (9.4-12.3); Monocytes Absolute Auto 0.4 X10*3/uL (0.1-1.2); Monocytes Percent Auto 6.2 % (2-11); Neutrophils Absolute Auto 3.7 x10*3/uL (2.0-8.3); Neutrophils Percent Auto 65.5 % (45-73); Platelet Count 460 X10*3/uL (160-400); Red Blood Count 4.77 X10*6/uL (4.20-5.50); White Blood Count 5.6 X10*3/uL (4.8-10.8)
[2024-04-11 09:01] LABS: Free T4 (Free Thyroxine) 1.08 ng/dL (0.71-1.85); Thyroid Stimulating Hormone 1.43 uIU/mL (0.32-4.0); Vitamin D 25-OH Total 11.2 ng/mL (>30)
[2024-04-11 09:12] LABS: Folate 12.7 ng/mL (> or = 4.0); Vitamin B12 353 pg/mL (200-900)
[2024-04-13 03:38] LABS: Rubella IgG Antibody 2.67 Index
[2024-04-14 04:54] LABS: TS Negative Control Passed; TS Panel A 0; TS Panel B 0; TS Positive Control Passed; TSpotTB Negative (Negative)
== END 2024-04-11 07:24 | disposition home or self-care (01) ==
LOC: HO.LAB 07:23
PROVIDERS: PCP Internal Medicine; Visit Provider Internal Medicine
DX: Z00.00 Encounter for general adult medical examination without abnormal findings (principal); E55.9 Vitamin D deficiency, unspecified; D64.9 Anemia, unspecified; Z11.1 Encounter for screening for respiratory tuberculosis; R63.6 Underweight; E53.8 Deficiency of other specified B group vitamins
CPT/HCPCS: 36415; 80053; 80061; 82306; 82607; 82746; 83540; 84439; 84443; 85025; 86481; 86735; 86762; 86765

== ENCOUNTER 2024-11-02 10:25 | Outpatient (REF) | payer OTHER, SELFPAY ==
[2024-11-04 14:39] LABS: H Pylori Breath Test Negative (Negative)
== END 2024-11-02 10:26 | disposition home or self-care (01) ==
LOC: HO.LNP 10:25
PROVIDERS: PCP Internal Medicine; Visit Provider Internal Medicine
DX: R10.33 Periumbilical pain (principal); G80.9 Cerebral palsy, unspecified; D64.9 Anemia, unspecified
CPT/HCPCS: 83013; 99202

== ENCOUNTER 2024-11-02 10:25 | Outpatient (AMB) | payer OTHER, SELFPAY ==
--- NOTE | 2024-11-02 10:30 | MHC.OFFVIS ---
Vital Signs 11/02/24 10:48 Height 5 ft 2 in Weight 82 lb BMI 15.0 BP 122/80 Blood Pressure Location Lt brachial Position Sitting Pulse 95 Oxygen Delivery Method Room Air Intake Visit Reasons: Abdominal pain Intake Note: Patient new consult for abdominal pain. Patient cc: middle abdominal pain on and off radiating to her sides, early satiety, abdominal burning sensation, constipation. Denies any other GI issues. Window Cutter Required: No Accompanied by: Sister Allergies ferrous sulfate Allergy (Intermediate, Verified 11/02/24 10:44) Abdominal Pain papaya Allergy (Intermediate, Verified 11/02/24 10:44) Rash HPI Comments Details: 49 y.o F with PMH of cerebral palsy who is here for abd pain. Accompanied by her sister. Reports started around spring time. Burning in sensation, mostly in epigastrium but radiates to flanks. Lasts for the whole day unless takes gavison. Assoc with nausea and early satiety. Has some constipation and bloating. Occ takes colace. Minimal fiber in diet. Does not take osmotic or stimulant laxative. Cologuard 02/2023 - negative. Chronic anemia noted. 2ndary to heavy menstrual period. Pt unable to tolerate PO iron. [facility] Medical History Underweight Family history of diabetes mellitus Cerebral palsy Urge urinary incontinence Surgical History Fibroadenoma Deficient knowledge of leg surgery Family History Mother Diabetes mellitus Father Diabetes mellitus Social History Housing: House Alcohol intake: never Patient Tobacco Use Status: Never used Tobacco e-Cigarette/Vaping Use: Never Used Second Hand Smoke Exposure: No service: No Current occupational status: disabled Cognitive needs: Yes Hearing needs: No Vision needs: No Review of Systems Const All systems reviewed & are unremarkable except as noted in HPI and below Physical Exam Vital Signs: Last Vital Signs Pulse 95 11/02/24 10:48 BP 122/80 11/02/24 10:48 Oxygen Delivery Method Room Air 11/02/24 10:48 BMI result Body Mass Index 15.0 Appears younger than stated age undernourished no acute distress nonicteric abd soft nontender nondistended lower extremity weakness and contractures Assessment & Plan Assessment & Plan (1) Cerebral palsy: Code(s): G80.9 - Cerebral palsy, unspecified Category: Medical (2) Abdominal pain: Code(s): R10.9 - Unspecified abdominal pain Category: Medical Qualifiers: Abdominal location: periumbilical Qualified Code(s): R10.33 - Periumbilical pain (3) Anemia: Code(s): D64.9 - Anemia, unspecified Category: Medical Plan 1. Abd pain: differentials include PUD, gastritis/duodenitis, cholelithiasis, celiac etc. Plan: - Labs - US Abd - Cont omeprazole 20 daily 2. Constipation Reviewed that can be common in pts with CP due to dysmotility. Plan: - Increase fiber intake - Encourage hydration - Add miralax at least 3-4 times a week 3. Anemia Likely 2/2 menstrual losses. Pt unable to tolerate PO iron. Plan: - Recheck CBC and iron studies - If persistently low, will start venofer 200 mg x 5 doses Follow up 3 months Orders: Orders Immunoglobulin A Today R10.33 - Periumbilical pain Immunoglobulin G Today R10.33 - Periumbilical pain Ferritin Today R10.33 - Periumbilical pain US abdomen complete Today R10.33 - Periumbilical pain Complete Blood Count no Diff Today R10.33 - Periumbilical pain Comprehensive Met. Panel Today R10.33 - Periumbilical pain TSH reflex Free T4 Today R10.33 - Periumbilical pain Transglutaminase IgA Today R10.33 - Periumbilical pain IRON PROFILE Today R10.33 - Periumbilical pain Vitamin B12 and Folate Today R10.33 - Periumbilical pain H Pylori Breath Test Today Medications: New polyethylene glycol 3350 (Miralax) 17 grams orally; mix in 8 oz of water/juice - drink every other day or 3 times a week 238 grams 0RF Coding Level of Care Code New Pt Level 4 (65052) Diagnoses Cerebral palsy G80.9 Periumbilical abdominal pain R10.33 Abdominal location: periumbilical Anemia D64.9
[2024-11-02 10:48] VITALS: BP 122/80; PULSE 95; BMI 15.0
== END 2024-11-02 12:01 | disposition home or self-care (01) ==
LOC: HO.HGI 10:25
PROVIDERS: PCP Internal Medicine; Visit Provider Internal Medicine
DX: G80.9 Cerebral palsy, unspecified (principal); R10.33 Periumbilical pain; D64.9 Anemia, unspecified
CPT/HCPCS: 99204

== ENCOUNTER 2024-12-05 07:58 | Outpatient (REF) | payer OTHER, SELFPAY ==
[2024-12-05 09:05] LABS: Hematocrit 36.6 % (37.0-47.0); Hemoglobin 10.9 g/dl (12.0-16.0); Mean Corpuscular HGB Conc 29.8 g/dl (31.0-35.0); Mean Corpuscular Hemoglobin 22.3 pg (27.0-33.0); Mean Corpuscular Volume 74.8 fL (80.0-98.0); Mean Platelet Volume 9.8 fL (9.4-12.3); Platelet Count 384 X10*3/uL (160-400); Red Blood Count 4.89 X10*6/uL (4.20-5.50); Red Cell Distribution Width 16.8 % (11.0-16.0); White Blood Count 11.6 X10*3/uL (4.8-10.8)
[2024-12-05 10:05] LABS: Alanine Aminotransferase 12 U/L (0-31); Albumin Level 4.5 g/dL (3.5-5.0); Alkaline Phosphatase 69 U/L (39-117); Anion Gap 12 (12-20); Aspartate Amino Transferase 22 U/L (5-31); Bilirubin Total 0.4 mg/dL (0.0-1.0); Blood Urea Nitrogen 15 mg/dL (9-16); Carbon Dioxide 23 mmol/L (22-29); Chloride 105 mmol/L (96-108); Estimated Glomerular Filt Rate > 60; Glucose Random 100 mg/dL (60-115); Iron 17 mcg/dL (30-160); Percent Iron Saturation 5 % (15-50); Potassium 3.8 mmol/L (3.3-5.1); Sodium 136 mmol/L (135-145); Total Iron Binding Capacity 327 mcg/dL (228-428); Total Protein 7.3 g/dL (6.5-8.0); Unsaturated Iron Binding 310 ug/dL
[2024-12-05 10:10] LABS: Ferritin 4 ng/mL (10-250); TSH reflex Free T4 1.07 uIU/mL (0.32-4.0)
[2024-12-05 10:16] LABS: Folate 10.3 ng/mL (> or = 4.0); Vitamin B12 294 pg/mL (200-900)
[2024-12-06 22:29] LABS: Transglutaminase IgA <1.0 U/mL
[2024-12-08 19:04] LABS: Immunoglobulin A 191 mg/dL (47-310); Immunoglobulin G 1190 mg/dL (600-1640)
== END 2024-12-05 07:59 | disposition home or self-care (01) ==
LOC: HO.LAB 07:58
PROVIDERS: PCP Internal Medicine; Visit Provider Internal Medicine
DX: R10.33 Periumbilical pain (principal)
CPT/HCPCS: 36415; 80053; 82607; 82728; 82746; 82784; 83540; 84443; 85027; 86364

== ENCOUNTER 2024-12-22 10:49 | Outpatient (REF) | payer OTHER, SELFPAY | END 2024-12-22 10:50 | disposition home or self-care (01) | LOC: HO.MAMMO 10:49 | PROVIDERS: PCP Internal Medicine; Visit Provider Internal Medicine | DX: Z12.31 Encounter for screening mammogram for malignant neoplasm of breast (principal) | CPT/HCPCS: 77063; 77067 ==

== ENCOUNTER → 2024-12-22 11:45 | Outpatient (BNV) | payer OTHER, SELFPAY | PROVIDERS: PCP Internal Medicine; Visit Provider Radiology Body Imaging | DX: Z12.31 Encounter for screening mammogram for malignant neoplasm of breast (principal) | CPT/HCPCS: 77063; 77067 ==

== ENCOUNTER 2024-12-26 09:13 | Outpatient (REF) | payer OTHER, SELFPAY ==
--- NOTE | ~2024-12-26 | US_ITS ---
CLINICAL HISTORY: R10.33 - Periumbilical pain US abdomen complete Comparison: None provided Findings: Examination is limited due to body habitus. Limited evaluation of the pancreas due to bowel gas. The liver is normal in size and echotexture. There is no intrahepatic bile duct dilatation. The common duct is 2.0 mm in diameter. The gallbladder is normal. There is no sonographic Garcia sign. The main portal vein is antegrade. The right kidney is 9.4 cm in length. There are small kidney stones measuring up to 3 mm. The left kidney is 9.2 cm in length. The spleen is normal. No ascites. IMPRESSION: Small right kidney stones. This document has been electronically signed by: Marian Phan MD on 12/26/2024 16:19:39
== END 2024-12-26 09:14 | disposition home or self-care (01) ==
LOC: HO.US 09:13
PROVIDERS: PCP Internal Medicine; Visit Provider Internal Medicine
DX: R10.33 Periumbilical pain (principal)
CPT/HCPCS: 76700

== ENCOUNTER → 2024-12-26 09:15 | Outpatient (BNV) | payer OTHER, SELFPAY | PROVIDERS: PCP Internal Medicine; Visit Provider Nuclear Medicine | DX: R10.33 Periumbilical pain (principal) | CPT/HCPCS: 76700 ==

== ENCOUNTER 2025-02-21 08:20 | Outpatient (AMB) | payer OTHER, SELFPAY ==
--- NOTE | 2025-02-21 08:22 | MHC.PC.OV ---
Vital Signs 02/21/25 08:24 Height 5 ft 2 in Weight 85 lb 2 oz BMI 15.6 BP 120/60 Blood Pressure Location Lt brachial Position Sitting Pulse 108 H Pulse Source Pulse Oximeter Temp 97.3 F Temp Source Temporal Artery Scan Pulse Oximetry (%) 99 Oxygen Delivery Method Room Air Intake Visit Reasons: Annual Exam Intake Note: Patient is here today for a physical. Slide Machine Tender Required: Yes Slide Machine Tender Language: Setswana Information Interpreted: non-clinical & clinical Harness Preparer: Present Accompanied by: Sister Allergies ferrous sulfate Allergy (Intermediate, Verified 02/21/25 08:49) Abdominal Pain papaya Allergy (Intermediate, Verified 02/21/25 08:49) Rash Medication List - Last Reconciled 02/21/25 by Sonia London MD ascorbate calcium (vitamin C) 500 mg PO DAILY 90 days cholecalciferol (vitamin D3) 50 mcg PO DAILY 90 days omeprazole 20 mg PO DAILY 90 days oxybutynin chloride ER 5 mg PO DAILY polyethylene glycol 3350 (Miralax) 17 grams orally; mix in 8 oz of water/juice - drink every other day or 3 times a week walker As directed Tobacco use date assessed: 02/21/25 Dental Screening Dental Screen Date: 02/21/25 Did you have a dental visit in the last 12 months?: No Did you have a dental problem in the last 6 months where you did not have access to dental care?: No Was dental information given to patient?: No HPI HPI Comments History of Present Illness Details The patient is a 49-year-old female presenting for a physical examination and preventative care. The patient has a history of cerebral palsy, which necessitates the use of a walker for mobility due to lack of range of motion in her lower limbs. She also experiences urinary incontinence, for which she is taking oxybutynin. The patient reports constipation, managed with MiraLAX. She has a history of anemia, which is being monitored. Her preventative care includes a Tdap vaccination administered in 2022, with the next dose due in 2032. She underwent a mammogram in December of this year, which was normal. A Cologuard test was performed in 2022, returning negative results, with the next screening scheduled for 2025. - Tdap vaccination completed in 2022, next due in 2032 - Mammogram performed in December 2024, results normal - Cologuard test completed in 2022, results negative, next due in 2025 [facility] Medical History (Updated 02/21/25 @ 09:01 by Sonia London MD) Underweight Family history of diabetes mellitus Cerebral palsy Urge urinary incontinence Surgical History Fibroadenoma Deficient knowledge of leg surgery Family History Mother Diabetes mellitus Father Diabetes mellitus Social History Housing: House Alcohol intake: never Patient Tobacco Use Status: Never used Tobacco e-Cigarette/Vaping Use: Never Used Second Hand Smoke Exposure: No service: No Current occupational status: disabled Cognitive needs: Yes (Walker, wheelchair) Hearing needs: No Vision needs: Yes (Glasses) Questionnaire PHQ-9 Over the last 2 weeks, how often have you been bothered by any of the following problems? 1. Little interest or pleasure in doing things: not at all 2. Feeling down, depressed, or hopeless: not at all 3. Trouble falling or staying asleep, or sleeping too much: not at all 4. Feeling tired or having little energy: not at all 5. Poor appetite or overeating: not at all 6. Feeling bad about yourself - or that you are a failure or have let yourself or your family down: not at all 7. Trouble concentrating on things, such as reading the newspaper or watching television: not at all 8. Moving or speaking so slowly that other people could have noticed. Or the opposite - being so fidgety or restless that you have been moving around a lot more than usual: not at all 9. Thoughts that you would be better off or of hurting yourself in some way: not at all Total score: 0 Depression Screening Interpretation: Negative Depression Screening Done: Yes 21931 - PHQ-9 Billing: Yes Source: Developed by Drs. Darwin Bergman, Mariella Leiva, Evangelist Hernandez and colleagues, with an educational brenda from [employer]. Thrive Questionnaire Date Thrive assessed: 02/14/25 I am a: Patient What is your living situation today?: I have a steady place to live Within the past 12 months, did the food you bought not last and you didn't have the money to get more?: Never true Within the past 12 months, did you worry whether your food would run out before you got money to buy more?: Never true Do you have trouble paying for medicines?: No Do you have trouble getting transportation to medical appointments?: No Do you have trouble paying your heating and electricity bill?: No Do you have trouble taking care of your child, family member or friend?: I choose not to answer this question Do you have trouble with day-to-day activities such as bathing, preparing meals, shopping, managing finances, etc.?: I choose not to answer this question Are you currently unemployed and looking for a job?: I choose not to answer this question Are you interested in more education?: I choose not to answer this question Please select the resources that you would like help with: None Currently or been in a relationship where the following occur: No concerns reported THRIVE Score: 0 AUDIT C Alcohol Use Questionnaire (AUDIT-C) 1. How often do you have a drink containing alcohol?: Never Total Score: 0 Score Reviewed/Action Taken: No LÁZARO-7 AMB Questionnaire LÁZARO-7 Date LÁZARO - 7 assessed: 02/21/25 Feeling nervous, anxious, or on edge: 0 = Not at all Not being able to stop or control worryin = Not at all Worrying too much about different things: 0 = Not at all Trouble relaxin = Not at all Being so restless that it is hard to sit still: 0 = Not at all Becoming easily annoyed or irritable: 0 = Not at all Feeling afraid as if something awful might happen: 0 = Not at all Total LÁZARO-7 score (0-4 normal; 5-9 mild; 10-14 moderate; 15-21 severe): 0 Source: Developed by Drs. Darwin Bergman, Mariella Leiva, Evangelist Hernandez and colleagues, with an educational brenda from [employer]. LÁZARO-7 Assessment Billing LÁZARO-7 Assessment Tool: LÁZARO-7 Assessment 77846 Review of Systems Const All systems reviewed & are unremarkable except as noted in HPI and below Card Denies chest pain at rest, Denies chest pain with activity, Denies edema, Denies irregular heart rhythm, Denies claudication, Denies dyspnea, Denies dyspnea on exertion, Denies orthopnea, Denies paroxysmal nocturnal dyspnea and Denies slow heart rate Resp Denies cough, Denies dyspnea and Denies dyspnea on exertion Physical exam (Primary Care) Vital Signs: Last Vital Signs Temp 97.3 F 02/21/25 08:24 Pulse 108 H 02/21/25 08:24 BP 120/60 02/21/25 08:24 Pulse Ox 99 02/21/25 08:24 Oxygen Delivery Method Room Air 02/21/25 08:24 BMI result Body Mass Index 15.6 Tobacco/Smoking Status: Tobacco use Status Tobacco use date assessed 02/21/25 02/21/25 08:31 Patient Tobacco Use Status Never used Tobacco 02/21/25 08:31 Tobacco use type 02/11/23 08:18 e-Cigarette/Vaping Use Never Used 02/21/25 08:31 PHQ-9: PHQ-9 Score PHQ-9: Total score 0 02/21/25 08:31 Depression Screening Interpretation: Negative Thrive Assessment: Date of Thrive Assessment Date Thrive assessed 02/14/25 02/21/25 08:31 Currently or been in a relationship where the following occur: No concerns reported HENMT Head: Yes normal to inspection, Yes normocephalic and Yes atraumatic Ears: external ears normal Eyes General: appearance normal, both eyes and all related structures Eyelids: Yes eyelids normal Conjunctivae: conjunctivae normal Neck Neck: Yes normal visual inspection and Yes supple Resp Effort & Inspection: normal respiratory effort Auscultation: clear to auscultation bilaterally Cardio Jugular venous distension: no JVD Rate: regular rate Rhythm: regular rhythm Heart sounds: S1 normal heart sound present and S2 normal heart sound present GI Inspection: Yes normal to inspection Palpation (GI): Soft to palpation and nontender Auscultation: normal bowel sounds Skin General skin exam: no rashes or lesions noted Psych Appearance: grossly normal Coding Level of Care Code Est Pt Level 3 (23254) Est Pt Prev Care 40-64y(87365) Diagnoses Encounter for physical examination Z00.00 Cerebral palsy G80.9 Urge urinary incontinence N39.41 Nephrolithiasis N20.0 Additional Codes PHQ-9 - 65126 - PHQ-9 Billing: Yes ([id number]) LÁZARO-7 Assessment Billing - LÁZARO-7 Assessment Tool: LÁZARO-7 Assessment 48053 ([id number]) Time Spent (min) 35 Assessment & Plan Assessment & Plan (1) Encounter for physical examination: Code(s): Z00.00 - Encounter for general adult medical examination without abnormal findings Category: Medical (2) Cerebral palsy: Code(s): G80.9 - Cerebral palsy, unspecified Category: Medical (3) Urge urinary incontinence: Code(s): N39.41 - Urge incontinence Category: Medical (4) Nephrolithiasis: Code(s): N20.0 - Calculus of kidney Category: Medical Plan Plan Patient was informed and verbally consented to the use of an ambient scribe for clinic note documentation during this visit. 1. Encounter for general adult medical examination without abnormal findings Z00.00 Preventative care measures include Tdap vaccination, mammogram, and Cologuard test, all of which are up to date. 2. Cerebral palsy, unspecified G80.9 HCC 74 The patient requires a walker for mobility due to cerebral palsy, which limits her range of motion in the lower limbs. 3. Unspecified urinary incontinence R32 The patient is currently managing urinary incontinence with oxybutynin. Orders: Orders Vitamin D 25-OH Total Today E55.9 - Vitamin D deficiency, unspecified Vitamin B12 and Folate Today E53.8 - Deficiency of other specified B group vitamins Lipid Panel Today E78.5 - Hyperlipidemia, unspecified Comprehensive [place]. Panel Fast Today Z00.00 - Encounter for general adult medical examination without abnormal findings T Spot TB Today Z11.1 - Encounter for screening for respiratory tuberculosis Referrals Urology Referral N20.0 - Calculus of kidney Medications: New oxybutynin chloride ER 10 mg PO DAILY 90 tabs 1RF 90 days
[2025-02-21 08:24] VITALS: BP 120/60; PULSE 108; TEMP 36.3; O2SAT 99; BMI 15.6
== END 2025-02-21 09:02 | disposition home or self-care (01) ==
PROVIDERS: PCP Internal Medicine; Visit Provider Internal Medicine
DX: Z00.00 Encounter for general adult medical examination without abnormal findings (principal); G80.9 Cerebral palsy, unspecified; N39.41 Urge incontinence; N20.0 Calculus of kidney

== ENCOUNTER → 2025-02-21 08:20 | Outpatient (BNVA) | payer OTHER, SELFPAY | PROVIDERS: PCP Internal Medicine; Visit Provider Internal Medicine | DX: Z00.00 Encounter for general adult medical examination without abnormal findings (principal); G80.9 Cerebral palsy, unspecified; N39.41 Urge incontinence; N20.0 Calculus of kidney | CPT/HCPCS: 96127; 99212; 99396 ==

== ENCOUNTER 2025-03-10 08:30 | Outpatient (RCR) | payer OTHER, SELFPAY ==
[2025-02-24 08:23] VITALS: BP 135/79; PULSE 100; RESP 16; TEMP 36.7; O2SAT 99
[2025-03-02 08:21] VITALS: BP 122/80; PULSE 98; RESP 18; TEMP 36.6; O2SAT 100
[2025-03-10 08:18] VITALS: BP 129/75; PULSE 100; RESP 16; TEMP 37; O2SAT 100
== END 2025-03-10 08:45 | disposition home or self-care (01) ==
LOC: HO.INF 08:30
PROVIDERS: PCP Internal Medicine; Visit Provider Internal Medicine
DX: D64.9 Anemia, unspecified (principal)
CPT/HCPCS: 96365; J1756